=== PATIENT | female | born 1995 | race Caucasian/White ===

== ENCOUNTER 2024-01-30 12:15 | Outpatient (CLI) | payer MEDICAID ==
--- NOTE | 2024-01-30 18:53 | XRAY Report ---
PROCEDURE: Hand 1-2V RT INDICATIONS: CONTUSION OF RIGHT HAND TECHNIQUE: 3 views of the hand(s) acquired. COMPARISON: None. FINDINGS: Bones: No acute displaced fracture or dislocation. Nonacute appearing ulnar styloid fracture fragmen t. Suspected nondisplaced fracture at the fifth metacarpal base. Soft tissues: No suspicious calcifications IMPRESSION: There is a possible nondisplaced fracture at the fifth metacarpal base. Nonacute appearing ulnar styl oid fracture fragment also seen. If there is high concern for occult injury, consider repeat radiogra phy or cross-sectional imaging. Reviewed by: Chris Williamson MD on 01/30/2024 6:52 PM PDT Approved by: Chris Williamson MD on 01/30/2024 6:52 PM PDT Station ID: [id number]
== END 2024-01-30 12:30 | disposition home or self-care (01) ==
LOC: DI.N 12:15
PROVIDERS: ATTEND Nurse Practitioner
DX: S52.611A Displaced fracture of right ulna styloid process, initial encounter for closed fracture (principal)

== ENCOUNTER 2024-02-05 09:51 | Outpatient (CLI) | payer MEDICAID ==
--- NOTE | 2024-02-05 11:45 | XRAY Report ---
PROCEDURE: Hand 1-2V RT INDICATIONS: UNSPEC. FX OF 5TH METACARPAL BONE, RIGHT HAND TECHNIQUE: 2 views of the hand(s) acquired. COMPARISON: 01/30/2024. FINDINGS: Bones: Overlying cast material limits fine bony detail. Similar appearance of non-displaced fracture at the base of the fifth metacarpal. Ulnar sided fracture is redemonstrated.. No suspicious bony le sions. Soft tissues: No suspicious soft tissue calcifications or masses. IMPRESSION: Similar appearance of nondisplaced fracture at the base of the fifth metacarpal. Reviewed by: Al Monroe MD on 02/05/2024 11:43 AM PDT Approved by: Al Monroe MD on 02/05/2024 11:43 AM PDT Station ID: [id number]
== END 2024-02-05 09:52 | disposition home or self-care (01) ==
LOC: DI 09:51
PROVIDERS: ATTEND Orthopaedic Surgery
DX: S62.346A Nondisplaced fracture of base of fifth metacarpal bone, right hand, initial encounter for closed fracture (principal)